=== PATIENT | male | born 1990 | race African-American/Black ===

== ENCOUNTER → 2023-02-18 11:34 | Outpatient (CLI) | payer SELFPAY ==
[2023-02-18 19:43] LABS: BUN Creatinine Ratio 21.6 (6-22); Blood Urea Nitrogen 19 mg/dL (9-20); Calcium 9.4 mg/dL (8.4-10.2); Carbon Dioxide 26 mmol/L (22-32); Chloride 99 mmol/L (98-107); Estimated Glomerular Filt Rate > 60 mL/min (>60); Glucose 101 mg/dL (70-100); HEMOLYSIS 22 (0-50); Potassium 4.6 mmol/L (3.4-5.1); Sodium 134 mmol/L (137-145)
[2023-03-19 10:34] LABS: Estradiol, Sensitive 1646.7
== END ==
PROVIDERS: PCP Family Medicine
DX: F64.9 Gender identity disorder, unspecified (principal)
CPT/HCPCS: 80048; 82670